=== PATIENT | female | born 1960 | race Two or more races ===

== ENCOUNTER 2017-06-22 14:48 | Emergency (ER) | payer MEDICAID, OTHER ==
[~2017-06-22] VITALS: Ht 160 cm; Wt 86.2 kg
[~2017-06-22 14:48] MED LIST: ALBUTEROL SULF8.5 GM INH; ALBUTEROL2.5 MG/3 M HHN; ALBUTEROL2.5 MG/3 M INH; AZITHROMYCIN250 MG ORAL; GUAIFENESIN-CO118 M1 ORAL; LEVAQUIN500 MG ORAL; PREDNISONE20 MG ORAL; QVAR7.3 G2 IH; ZANTAC150 MG ORAL; ZITHROMAX250 MG ORAL; ZOFRAN ODT4 MG ORAL
[2017-06-22 15:00] VITALS: BP 112/68
--- NOTE | 2017-06-22 15:23 | Emergency Room Report ---
History of Present Illness General Chief Complaint: Back Pain-No Injury Source: Patient Present Illness HPI 56-year-old female presents to the emergency department complaining of 9/10 in severity upper left-sided back pain x3 days. Patient states pain is exacerbated upon turning of her torso or attempting to sit up straight. Patient denies radiation of her pain she denies appreciable trauma or fall. Patient reports that she does have a history of a dislocated shoulder but she finished physical therapy for that quite some time ago. Denies Cough, wheezing or sputum production. Reports she had mild pain yesterday but was baby-sitting her 5 YO grand-daughter and may have exacerbated her injury then. Denies numbness tingling or loss of sensation or gross motor movements of the extremities, incontinence of bowel or bladder. Denies SOB, CP, Palpitations, LOC , AMS, dizziness, Changes in Vision, Sensation, paresthesias, or a sudden severe headache. Allergies: Coded Allergies: IODINE (Unverified Allergy, Severe, 07/08/14) Patient History Past Medical History: see triage record Past Surgical History: none Pertinent Family History: none Reviewed Nursing Documentation: PMH: Agreed, PSxH: Agreed Nursing Documentation-PMH Past Medical History: No History, Except For Hx Hypertension: Yes Hx Asthma: Yes Hx Diabetes: Yes Hx Gastrointestinal Problems: Yes - STOMACH ULCERS Hx Cerebrovascular Accident: No - HYPERLIPIDEMIA Review of Systems All Other Systems: negative except mentioned in HPI Physical Exam Vital Signs Date Time Temp Pulse Resp B/P (MAP) Pulse Ox O2 Delivery O2 Flow Rate FiO2 06/22/17 14:50 98.0 100 20 109/68 98 Room Air 98.1 Sp02 EP Interpretation: reviewed, normal General Appearance: no apparent distress, alert, GCS 15, non-toxic Head: normocephalic, atraumatic ENT: hearing grossly normal, normal voice Neck: full range of motion Respiratory: chest non-tender, lungs clear, normal breath sounds, speaking full sentences Cardiovascular #1: regular rate, rhythm, no edema, normal capillary refill Gastrointestinal: non tender, soft Genitourinary: normal inspection, no CVA tenderness Musculoskeletal: back normal, gait/station normal, normal range of motion, tender - TTP localized to the left rhomboid, no midline spinal ttp 4 inch area of tenderness paraspinal to the left side of upper thoracic spine. Neurologic: alert, oriented x3, responsive, motor strength/tone normal, sensory intact, normal gait, speech normal, grossly normal Psychiatric: judgement/insight normal Skin: normal color, no rash, warm/dry, well hydrated Medical Decision Making PA Attestation Dr. david is my supervising Physician whom patient management has been discussed with. Diagnostic Impression: Primary Impression: Back pain Qualified Codes: M54.6 - Pain in thoracic spine Additional Impression: Rhomboid muscle pain ER Course 56-year-old female presents to the emergency department complaining of 9/10 in severity upper left-sided back pain x3 days. Patient states pain is exacerbated upon turning of her torso or attempting to sit up straight. Patient denies radiation of her pain she denies appreciable trauma or fall. Patient reports that she does have a history of a dislocated shoulder but she finished physical therapy for that quite some time ago. Denies Cough, wheezing or sputum production. Reports she had mild pain yesterday but was baby-sitting her 5 YO grand-daughter and may have exacerbated her injury then. Denies numbness tingling or loss of sensation or gross motor movements of the extremities, incontinence of bowel or bladder. Denies SOB, CP, Palpitations, LOC , AMS, dizziness, Changes in Vision, Sensation, paresthesias, or a sudden severe headache. Ddx considered but are not limited to Fracture, dislocation, contusion, Sprain/ Strain/Spasm, aortic dissection just to name a few Vital signs: are WNL, pt. is afebrile H&PE are most consistent with musculoskeletal injury will perform imaging to r/ o fractures/dislocations. ORDERS: - X-ray not warranted no bony ttp ED INTERVENTIONS: - Toradol IM d/w pt. conservative treatment, and to follow up with a primary care provider. pt given a list of primary care clinics for follow up. d/w pt. to return to the ED with worsening or new symptoms. DISCHARGE: At this time pt. is stable for d/c to home. Will provide printed patient care instructions, and any necessary prescriptions. Care plan and follow up instructions have been discussed with the patient prior to discharge. Last Vital Signs Date Time Temp Pulse Resp B/P (MAP) Pulse Ox O2 Delivery O2 Flow Rate FiO2 06/22/17 14:50 98.0 100 20 109/68 98 Room Air 98.1 Disposition: HOME, SELF-CARE Condition: Stable Scripts Lidocaine (Lidoderm) 1 Each Adh..patch 1 PATCH TOPIC DAILY, #30 PATCH 0 Refills Patch(es) may remain in place for up to 12 hours in any 24-hour period. Prov: Lisa Lacy 06/22/17 Meloxicam* (MELOXICAM*) 7.5 Mg Tablet 7.5 MG PO DAILY, #20 TAB Prov: Lisa Lacy 06/22/17 Methocarbamol* (ROBAXIN*) 500 Mg Tablet 1000 MG PO TID, #42 TAB 0 Refills Prov: Lisa Lacy 06/22/17 Referrals: [facility],REFERRING (PCP) Patient Instructions: Muscle Pain, Adult, Muscle Strain, [id number] Additional Instructions: Take medications as directed. Follow up with a Primary Care Provider in 3-5 days, even if your symptoms have resolved. --Please review list of primary care clinics, if you do not already have a primary care provider Return sooner to ED if new symptoms occur, or current symptoms become worse. Do not drink alcohol, drive, or operate heavy machinery while taking Muscle Relaxer: Robaxin as this may cause drowsiness. - Please note that this Emergency Department Report was dictated using [employer] process improvement technology software, occasionally this can lead to erroneous entry secondary to interpretation by the dictation equipment. Lisa Lacy Jun 22, 2017 15:23
[2017-06-22] MEDS ORDERED: Ketorolac 60mg Inj IM ONE (15:30)
[2017-06-22] MEDS ORDERED: MELOXICAM7.5 MG PO (15:40)
[2017-06-22] MEDS ORDERED: ROBAXIN500 MG PO (15:40)
[2017-06-22] MEDS ORDERED: LIDODERM700 M1 TOPIC (15:41)
[2017-06-22 15:57] VITALS: BP 112/68
== END 2017-06-22 16:02 | disposition home or self-care (01) ==
LOC: EMR 15:03
DX: M54.6 Pain in thoracic spine (principal); E11.9 Type 2 diabetes mellitus without complications; I10 Essential (primary) hypertension; E78.5 Hyperlipidemia, unspecified
CPT/HCPCS: 96372; 99284